=== PATIENT | female | born 1980 | race Caucasian/White ===

== ENCOUNTER 2018-09-29 09:29 | Inpatient (IN) | payer SELFPAY ==
--- NOTE | 2018-09-27 10:59 | HP.PCM_ITS ---
History and Physical Date of Admission: 09/27/18 Pre-Op History and Physical ? HPI: The patient is a 38 year old female presenting for pre-operative visit. She is scheduled for?, for?elective c/s on?09/29/18. ??Procedure discussed along with risks, benefits and complications. ?Other alternatives discussed for management. Consent form signed??Yes.? PAST?MEDICAL?HISTORY PAST MEDICAL HISTORY Diagnosis Date ? History of varicose veins 10/17/2012 ? 10/17/2012 Patient has right leg varicose veins. ?Discussed the importance of avoiding prolonged standing, sitting or crossing her legs. TKRN ? Other and unspecified disc disorder of unspecified region ? ? Intervertebral disc disorders--lumbar and mid-back per patient ? hemorrhage ? ? thyroid nodule ? ? ? PAST?SURGICAL?HISTORY PAST SURGICAL HISTORY Procedure Laterality Date ? BACK SURGERY HX ? 09/2015 ? herniated disc ? D&C ? ? ? 11 days ? ? CURRENT?MEDICATIONS Current Outpatient Medications Medication Sig Dispense Refill ? MULTIVITAMIN ORAL Take by mouth. ? ? ? No current facility-administered medications for this visit.? ? ALLERGIES:?Patient has no known allergies. ? PERSONAL HISTORY:? SOCIAL?HISTORY Social History ??Socioeconomic History ?Marital status: ?Spouse name: RACHEL ?Number of children: 1 ?Years of education: 8 ?Highest education level: Not on file ??Social Needs ?Financial resource strain: Not on file ?Food insecurity - worry: Not on file ?Food insecurity - inability: Not on file ?Transportation needs - medical: Not on file ?Transportation needs - non-medical: Not on file ??Occupational History ?Occupation: homemaker ??Tobacco Use ?Smoking status: Never Smoker ?Smokeless tobacco: Never Used ??Substance and Sexual Activity ?Alcohol use: No ?Drug use: No ?Sexual activity: Yes ?Partners: Male ??Other Topics ?Concerns: ?Not on file ??Social History Narrative ?Not on file ? FAMILY HISTORY:? FAMILY?HISTORY FAMILY HISTORY Problem Relation Age of Onset ? No Known Problems Mother ? ? No Known Problems Father ? ? No Known Problems Sister ? ? No Known Problems Sister ? ? No Known Problems Sister ? ? No Known Problems Brother ? ? No Known Problems Brother ? ? No Known Problems Brother ? ? No Known Problems Brother ? ? other (TOAN MELO) Maternal Grandmother ? ? No Known Problems Maternal Grandfather ? ? No Known Problems Paternal Grandmother ? ? Heart Paternal Grandfather ?[place] at 75 yo ? No Known Problems Daughter ? ? REVIEW OF SYMPTOMS: GENERAL: denies fevers or chills ENDOCRINOLOGY: has not been on steroids Cardiology : denies palpitations or chest pain Respiratory: denies SOB or cough Hematology: denies history of prolonged bleeding or easy bruising or VTE Allergy: Denies history of personal or family history of allergy to anesthesia ? ? PHYSICAL EXAMINATION: ? VITALS:?Last menstrual period 01/09/2018. ? GENERAL:??The patient is well nourished, well hydrated in no acute distress. ?, The patient is oriented to time, place, and person. NECK:?Supple. No lynphadenopathy, normal thyroid, no thyromegaly. LUNGS:?Clear to auscultation bilaterally. no wheezes, rhonchi or rales HEART:?Regular rate and rhythm, Normal heart sounds and No murmurs or gallops abd- soft, nontender, gravid, appropriate for gestational age ? IMPRESSION:?38-year-old 2 para 1 at 39-0/7 weeks on 09/29/2018, advanced maternal age, desires sterilization and elective section ? PLAN:???The risks/benefits/alternatives and personal involved for the planned?c- s and bilateral salpingectomy?were reviewed with the patient. Her questions were answered to her satisfaction and she desires to proceed. ?Consent was signed. ?I reviewed with her postop instructions and expectations. ? ? I have reviewed and updated past medical and surgical history, medications and allergies? This H&P was completed in my office on 09/26/18 Ashli Hernandez M.D.
[2018-09-29] VITALS (20 sets, daily range): BP systolic 94–107; BP diastolic 54–71; PULSE 60–74; RESP 16–18; TEMP 35.9–36.4; O2SAT 96–100; BMI 25.2
--- NOTE | 2018-09-29 | FALS_PTH ---
PATIENT: CHELSY NORIEGA LOC: [facility] U#:[id number] AGE/SX: 38/F ROOM: WP003 RE09/29/[address]: Dr. Ashli Hernandez MD : 1980 BED: 1 DIS: 10/02/2018 SPEC #: [id number] RECD: 09/29/18 14:31 STATUS: MARILEE KYLE #: [id number] HONG: 09/29/18 00:[address]: Ashli Hernandez DEPT: SURGICAL PATHOLOGY RECD BY: David Avitia ENTERED: 10/02/18 08:42 SP TYPE: FALL TUBES OTHR DR: Dr. Puhong Ramon MD Tissues: Fallopian tube Procedures: Surgery Specimen Level II HEADER OPERATION: Tubal ligation PRE-OP DIAGNOSIS: Desires sterilization TISSUE SUBMITTED: Fallopian tubes MICROSCOPIC DIAGNOSIS Right and left fallopian tubes, bilateral salpingectomies: Complete segments of fallopian tubes with benign paratubal cysts. AM:andre 10/03/18 MICROSCOPIC DESCRIPTION Slides are reviewed. GROSS DESCRIPTION Received is one container labeled with the patient's name and designated bilateral fallopian tubes, suture in left tube. The specimen consists of bilateral fallopian tubes including fimbrial ends. The left tube is identified by a suture. The right tube without suture measures 6.5 cm in length and 0.5 cm in diameter. The left tube with suture measures 6 cm in length and 0.5 in diameter. Sections do not reveal any mass lesion. Sections reveal unremarkable cut surfaces. Turning Sander Tender sections are submitted in two cassettes as follows: 1 - right tube, 2 - left tube. / ALEXI:andre 10/02/18 TC:5 CPT: 43716 x2
[2018-09-29 10:33] LABS: ROM Internal Control Test YES-OK TO RESULT pt. (Internal QC)
[2018-09-29 10:34] LABS: ROM Patient Test POSITIVE (Negative)
[2018-09-29] MEDS: Lactated Ringers 1,000 ML 999 ML IV (10:41)
[2018-09-29 10:58] LABS: Absolute Lymphocyte Count 1.34 X10^3/ul (0.83-4.51); Absolute Neutrophil Count 7.1 X10^3/uL (2.0-7.7); Basophil# 0.01 X10^3/uL; Basophil% 0.1 % (0-1); Eosinophil# 0.08 X10^3/uL; Eosinophils% 0.8 % (0-5); Hematocrit 35.1 % (37-47); Hemoglobin 11.4 g/dl (12.0-15.0); Lymphocyte # 1.34 X10^3/ul (4.0); Lymphocyte % 14.1 % (19-41); Mean Corp Hgb Conc 32.5 g/gl (32-36); Mean Corpuscular Hgb 28.7 pg (27.0-32.0); Mean Corpuscular Volume 88.4 fL (81-99); Mean Platelet Vol. 10.4 fl (6.2-12.0); Monocyte# 0.83 X10^3/uL; Monocyte% 8.8 % (0-10); Neutrophil # 7.11 X10^3/uL (2.7-7.7); Neutrophil % 75.1 % (47-70); Platelet Count 204 K/mm3 (150-450); RBC Distribution Width CV 13.9 % (11.6-14.6); Red Blood Count 3.97 M/mm3 (4.2-5.4); White Blood Count 9.5 K/mm3 (4.4-11.0)
[2018-09-29 11:00] LABS: POSITIVE COUNT NO; POSITIVE DIFFERENTIAL NO; POSITIVE MORPHOLOGY NO
[2018-09-29] MEDS: Cefazolin 2 GM in 0.9% Normal Saline 100 ML IV (11:43)
[2018-09-29] MEDS: Lactated Ringers 1,000 ML 150 ML IV (11:43)
[2018-09-29] MEDS: Sodium Citrate/Citric Acid 30 ML UDC PO (11:43)
[2018-09-29] MEDS: Oxytocin 30 units/NS 500 ml 30 UNITS/500 ML IV.SOLN 167 UNITS IV (12:26)
[2018-09-29] MEDS: Ondansetron 4 MG/2 ML Vial IV (12:40)
[2018-09-29] MEDS: Ketorolac 30 MG/ML Syringe IV ×2 (12:56→19:30)
[2018-09-29] MEDS: Lactated Ringers 1,000 ML 100 ML IV ×2 (12:56→18:45)
--- NOTE | 2018-09-29 13:06 | PCM.OPRPT ---
Report of Operation Date of Procedure: 09/29/18 community integration specialist: Elías Bishop Delivery Classification: Scheduled Final NEELAM: 10/06/18 Final NEELAM Source: US <20 weeks Gestational age: 39 Weeks and 0 Days Indications for : - - elective c-s, 39 weeks, advanced maternal age, sterilization request, SROM Description of Procedure: The patient was taken to the operating room. She was prepped and draped in the dorsal supine position with a leftward tilt. A Pfannenstiel skin incision was made approximately 2 cm above the symphysis pubis and carried through to underlying layer fascia with the scalpel. The fascia was incised incised in the midline and extended laterally with the Hou scissors. The fascia was dissected off the rectus muscles with blunt and sharp dissection. The rectus muscles were in the midline and the peritoneum was entered bluntly. The peritoneal incision was stretched and the bladder blade was placed. The uterine incision was made in a low transverse fashion with the scalpel and extended superiorly and inferiorly with blunt dissection. The amniotic membranes were ruptured bluntly and clear amniotic fluid returned. The 's head was brought to the incision in the flexed position and delivered without difficulty. The remainder of the was delivered with gentle traction and fundal pressure in the standard fashion. The mouth and nares were bulb suctioned. The cord was clamped and cut as the was stimulated. Cord clamping was delayed. The was handed off to the waiting nursing staff. The placenta was delivered with fundal massage and gentle traction in the standard fashion. The uterus was exteriorized and cleared of all clots and debris. The cervix was dilated with a ring forcep. The uterine incision was closed with #1 Vicryl in a running locked fashion. A second layer of the same suture was used in an imbricating fashion. The incision was examined and was found to be hemostatic. The uterus was placed back into the peritoneal cavity and hemostasis was again confirmed. The left fallopian tube was identified and followed out to fimbriated end. It was tented up with clamps. Clear portions of the antimesenteric portion of the tube were Bovie cauterized. This allowed Radha clamps to be placed along the antimesenteric portion of the tubes where the remaining vessels were. The tube was then bovied off. The corneal and was bovied. The corneal and and the vessels were bovied and then secured with plain gut free ties. The site was hemostatic. The tube was then removed in its entirety. The same procedure was performed on the contralateral side and excellent hemostasis was noted. The uterine incision was again examined and found to be hemostatic. The rectus muscles were examined and any bleeding was Bovie cauterized. The surgical teams outer gloves were then changed. The parietal peritoneum and rectus muscles were closed en bloc with an 0 Vicryl running suture. The rectus fascia was examined and any bleeding was Bovie cauterized and the rectus fascia was closed with 1 Vicryl suture in a running standard fashion. The subcutaneous tissue was examining and any bleeding was Bovie cauterized. The subcutaneous tissue was reapproximated with 3-0 Vicryl suture. The skin was closed in a subcuticular fashion by me. I performed the remainder of the procedure with assistance. All sponge, lap, and needle counts were correct. The patient was taken to her room for recovery in a stable condition. Amniotic Membrane Rupture Type: Spontaneous Amniotic Fluid Description: Clear Placenta Disposition: [facility] Specimen(s) sent to pathology: bilateral tubes Drain: Garibay to straight drain Fluids Replaced: 1700 Cord Entanglement: None Cord Vessel Description: 3 Vessels Esitmated Blood Loss (ml): 800 Infant Gender: Male (1 minute): 8 (5 minute): 9 Delayed cord clamping: Yes Pre-op Antibiotic Given: Ancef 2 grams IV x1 Complications: None - Admit VTE Documentation VTE Present on Admission: No VTE Mechan Device Prophylaxis: SCD's VTE Pharm Prophylaxis ordered?: No Reason prophylaxis not ordered:: Procedure Not Indicated
[2018-09-29 14:52] LABS: Pathology Specimen OB SEE PATHOLOGY REPORT
[2018-09-29] MEDS: Acetaminophen 500 MG Tablet 1000 MG PO (15:13)
[2018-09-29] MEDS: DiphenhydrAMINE 25 MG Capsule PO (18:44)
[2018-09-29] MEDS: Senna/Docusate Sodium 1 Tablet PO (21:28)
[2018-09-30] VITALS (13 sets, daily range): BP systolic 94–136; BP diastolic 45–68; PULSE 60–92; RESP 16–30; TEMP 36.2–36.9; O2SAT 98–99
[2018-09-30] MEDS: Ketorolac 30 MG/ML Syringe IV ×2 (00:42→06:31)
[2018-09-30] MEDS: Lactated Ringers 1,000 ML 100 ML IV (04:51)
[2018-09-30 05:29] LABS: Hematocrit 32.9 % (37-47); Hemoglobin 10.6 g/dl (12.0-15.0); Mean Corp Hgb Conc 32.2 g/gl (32-36); Mean Corpuscular Hgb 29.2 pg (27.0-32.0); Mean Corpuscular Volume 90.6 fL (81-99); Mean Platelet Vol. 10.1 fl (6.2-12.0); Platelet Count 185 K/mm3 (150-450); RBC Distribution Width CV 14.1 % (11.6-14.6); RBC Distribution Width SD 46.7 fl (35.1-43.9); Red Blood Count 3.63 M/mm3 (4.2-5.4)
[2018-09-30 05:30] LABS: Scan Indicated on CBC? Y/N NO
--- NOTE | 2018-09-30 06:04 | PN.OBGYN_ITS ---
Subjective: Pain controlled. Average lochia. No nausea. Tolerating regular diet. Has been up to chair. - Physical Exam General: Alert, Cooperative, No apparent distress Abdomen: Soft, Distended - Moderately, softly, Tender - Appropriately, - - Fundus firm below the umbilicus Extremities: Edema - Trace Skin: Incision - Bandages clean dry and intact Vital Signs Temp Pulse Resp BP Pulse Ox 98.3 F 64 16 95/61 99 09/30/18 00:20 09/30/18 00:20 09/30/18 00:20 09/30/18 00:20 09/30/18 00:29 Oxygen Delivery Method Room Air Weight: 75.296 kg Body Mass Index (BMI) 25.2 Intake and Output for Last 24 Hours 09/28/18 09/29/18 09/30/18 23:59 23:59 23:59 Intake Total 4800 / 4800 1632 / 1632 Output Total 5150 / 5150 775 / 775 Balance -350 / -350 857 / 857 Laboratory Tests Past 24 Hrs 09/29/18 09/29/18 09/29/18 10:20 10:25 10:25 WBC 9.5 RBC 3.97 L Hgb 11.4 L Hct 35.1 L MCV 88.4 MCH 28.7 MCHC 32.5 RDW 13.9 RDW Differential 44.0 H Plt Count 204 MPV 10.4 Immature Gran % (Auto) 1.100 H Neut % (Auto) 75.1 H Lymph % (Auto) 14.1 L Divide % (Auto) 8.8 Eos % (Auto) 0.8 Baso % (Auto) 0.1 Absolute Neuts (auto) 7.1 Absolute Lymphs (auto) 1.34 Total Counted Not Reportable Vag Amniotic Fld Detect POSITIVE H Blood Type O POSITIVE Antibody Screen NEGATIVE 09/30/18 05:00 WBC 12.0 H RBC 3.63 L Hgb 10.6 L Hct 32.9 L MCV 90.6 MCH 29.2 MCHC 32.2 RDW 14.1 RDW Differential 46.7 H Plt Count 185 MPV 10.1 Immature Gran % (Auto) Neut % (Auto) Lymph % (Auto) Divide % (Auto) Eos % (Auto) Baso % (Auto) Absolute Neuts (auto) Absolute Lymphs (auto) Total Counted Vag Amniotic Fld Detect Blood Type Antibody Screen Medical Necessity - Tobacco Use Smoking Status: Never smoker Assessment/Plan Postoperative day #1 status post primary with bilateral salpingectomy for sterilization. Patient is doing well. Routine care.
[2018-09-30] MEDS: Senna/Docusate Sodium 1 Tablet PO (11:47)
[2018-09-30] MEDS: Naproxen 250 MG Tablet PO (11:54)
[2018-09-30] MEDS: oxyCODONE 5 MG Tablet PO ×3 (12:51→20:56)
[2018-09-30] MEDS: Morphine 4 MG/ML Syringe 8 MG IM (13:45)
--- NOTE | 2018-09-30 13:50 | NURSING ---
Pt and pt called this RN to room. This RN went to room to find pt hyperventilating in bed and crying stating she was in a lot of pain. Vitals obtained and WNL, assessment done and distended abdomen noted otherwise assessment unchanged. This RN called Dr Hernandez and informed of pt status and orders obatined for STAT labs and IM pain medicine. Once pt instructed to slow and control breathing and pain meds given pt calm and stating pain is relieved. This RN placed pt on left side to help with gas pains felt by pt. Dr Hernandez called and updated with lab results and pt improvement.
[2018-09-30 14:00] LABS: Hematocrit 35.6 % (37-47); Hemoglobin 11.7 g/dl (12.0-15.0); Mean Corp Hgb Conc 32.9 g/gl (32-36); Mean Corpuscular Hgb 29.5 pg (27.0-32.0); Mean Corpuscular Volume 89.7 fL (81-99); Mean Platelet Vol. 10.2 fl (6.2-12.0); Platelet Count 223 K/mm3 (150-450); RBC Distribution Width CV 14.2 % (11.6-14.6); RBC Distribution Width SD 45.6 fl (35.1-43.9); Red Blood Count 3.97 M/mm3 (4.2-5.4); Scan Indicated on CBC? Y/N NO; White Blood Count 14.6 K/mm3 (4.4-11.0)
[2018-09-30 14:06] LABS: International Normalized Ratio 0.9; Prothrombin Time (Protime)PT. 11.6 SECONDS (11.7-14.9)
[2018-09-30] MEDS: 0.9% Saline Lock 10 ML Syringe IV (16:22)
--- NOTE | 2018-09-30 20:55 | CM.ED ---
Social Work Brief Assessment - Labor and Delivery Unit Refer documentation below for further details. Date of Referral/Notification: 09/29/18 Time of Referral: 17:13 Reason for Referral: NURSING CONCERNS Date of Intervention: 09/30/18 Time of Intervention: 20:35 Informant: Medical record and mother of baby (MOB) Assessment: MOB IS A 38 Y/O FEMALE SEEN AFTER ON 09/29/18. UPDATED BY NURSING CONCERNS REGARDING MOB BEHAVIOR: FLAT AFFECT, LIMITED EYE CONTACT, NOT MUCH INVOLVEMENT WITH BABY BOY, GEORGE. THIS WORKER INTRODUCED ROLE AND REASON FOR REFERRAL TO MOB AND FOB, RACHEL IN ROOM. MOB LAYING IN BED. FOB ASSISTING IN ADJUSTING PILLOWS FOR MOB. FOB VERY TENTATIVE TO MOB AND BABY DURING THIS WORKER'S TIME IN ROOM. MOB CALM AND COOPERATIVE THROUGHOUT ASSESSMENT. ,MOB MAINTAINED GOOD EYE CONTACT AND SMILED THROUGHOUT ASSESSMENT. MOB REPORTS HAD A ROUGH DAY DUE TO PAIN, BUT STATES NURSING STAFF HAS BEEN ON TOP OF IT SINCE THIS AFTERNOON. MOB DENIES ANY HX OF DEPRESSION OR ANXIETY, HOWEVER, REPORTS MAY HAVE HAD POST AFTER FIRST CHILD, KASH ZAMORANO NOW AGE 5. ROGER DISCUSSED PPD AND PROVIDED MOB WITH HANDOUT. FOB ADMITS TO OWN HX OF DEPRESSION AND STATES WAS PRESCRIBED ZOLOFT. MOB AND FOB REPORT HAVE ALL NEEDS MET FOR BABY. THEY BOTH DENY ANY ISSUES OR CONCERNS. UPDATED NURSING ON THIS WORKERS ASSESSMENT. Plan: HOME No further needs requested or indicated. -Polina Ambrosio, FEED PROJECT ENGINEER, KNOT CUTTER
[2018-10-01] MEDS: Naproxen 250 MG Tablet PO ×3 (00:47→17:30)
[2018-10-01 02:55] VITALS: BP 96/55; PULSE 65; RESP 16; TEMP 36.3
[2018-10-01] MEDS: oxyCODONE 5 MG Tablet PO (04:57)
[2018-10-01 08:22] VITALS: BP 94/60; PULSE 66; RESP 16; TEMP 36.5; O2SAT 99
--- NOTE | 2018-10-01 09:42 | PCM.PN.OB ---
Subjective: Patient states pain is well controlled today. She has had some loose stools. She is tolerating regular diet and ambulating. Yesterday her pain got out of control and she had an episode. Nursing called me and the patient was moaning in the background. She was complaining of diffuse abdominal pain but she also complained of pain when they touched her anywhere including on the arms and legs. Patient denies that she has had panic attacks in the past. She denies any previous episodes similar to this. She denies anxiety about going home and does have arranged home so she does not feel overwhelmed. - Physical Exam General: Alert, Cooperative, No apparent distress Abdomen: Soft, Distended - Mildly, softly, Tender - Appropriately Extremities: No edema Skin: Incision - Bandage is clean dry and intact Vital Signs Temp Pulse Resp BP Pulse Ox 97.7 F L 66 16 94/60 99 10/01/18 08:22 10/01/18 08:22 10/01/18 08:22 10/01/18 08:22 10/01/18 08:22 Oxygen Delivery Method Room Air Weight: 75.296 kg Body Mass Index (BMI) 25.2 Intake and Output for Last 24 Hours 09/29/18 09/30/18 10/01/18 23:59 23:59 23:59 Intake Total 4800 / 4800 1632 / 1632 Output Total 5150 / 5150 1125 / 1125 Balance -350 / -350 507 / 507 Laboratory Tests Past 24 Hrs 09/30/18 09/30/18 13:45 13:45 WBC 14.6 H RBC 3.97 L Hgb 11.7 L Hct 35.6 L MCV 89.7 MCH 29.5 MCHC 32.9 RDW 14.2 RDW Differential 45.6 H Plt Count 223 MPV 10.2 PT 11.6 L INR 0.9 Medical Necessity - Tobacco Use Smoking Status: Never smoker Assessment/Plan Postoperative day #2 status post section Discussed with her loose stools are likely a side effect of the Hemabate, stool softeners were stopped. Encouraged patient to ambulate. Patient had episode yesterday which was likely a panic attack. I think the patient's anxiety spiked when her pain increased and did not get relieved quickly. Patient eventually was able to get her pain under control with IM morphine and they were able to restart an IV and check labs. There is no evidence of postoperative hemorrhage as her hemoglobin actually increased and her platelets and coags were normal. Patient denies history of this in the past. Does have help at home she is discharged. Patient and I agree that she should stay until tomorrow to ensure that her pain is well controlled today and she has no further anxiety attacks. Infant is doing well.
[2018-10-01] MEDS: Acetaminophen 500 MG Tablet 1000 MG PO ×2 (12:30→20:43)
[2018-10-01 14:10] VITALS: BP 103/59; PULSE 68; RESP 16; TEMP 36.7; O2SAT 98
[2018-10-01 20:00] VITALS: BP 114/68; PULSE 69; RESP 18; TEMP 36.1
[2018-10-02] MEDS: oxyCODONE 5 MG Tablet PO ×2 (00:27→09:28)
[2018-10-02 02:05] VITALS: BP 118/64; PULSE 64; RESP 18; TEMP 36.6
[2018-10-02] MEDS: 0.9% Saline Lock 10 ML Syringe IV (06:10)
[2018-10-02] MEDS: Naproxen 250 MG Tablet PO (06:14)
[2018-10-02 08:15] VITALS: BP 122/56; PULSE 67; RESP 16; TEMP 36.6
--- NOTE | 2018-10-02 08:27 | PN.OBGYN_ITS ---
Subjective: Doing well per patient and nursing staff. Ambulating and taking PO without difficulty. Voiding and passing flatus. No further soft stools. Pumping b reastmilk, baby not eating at the breast. Denies any increased vaginal bleeding/clots, SOB, chest pain, or increased pain. Pain controlled with oxycodone and ibuprofen. Planning D/C home today. - Physical Exam General: Alert, Oriented x3, Cooperative HEENT: Atraumatic, Normocephalic Neck: Trachea Midline Lungs: Clear to auscultation, No rhonchi, No wheeze Cardiovascular: Regular rate, Regular Rhythm, No murmurs Abdomen: Bowel Sounds Present, Soft, Gravid, - - appropriately tender Extremities: No edema, - - Edilberto's negative Psych/Mental Status: Normal Affect, Appropriate Vital Signs Temp Pulse Resp BP Pulse Ox 97.9 F 67 16 122/56 H 98 10/02/18 08:15 10/02/18 08:15 10/02/18 08:15 10/02/18 08:15 10/01/18 14:10 Oxygen Delivery Method Room Air Weight: 166 lb Body Mass Index (BMI) 25.2 Intake and Output for Last 24 Hours 09/30/18 10/01/18 10/02/18 23:59 23:59 23:59 Intake Total 1632 / 1632 Output Total 1125 / 1125 Balance 507 / 507 Medical Necessity - Tobacco Use Smoking Status: Never smoker Assessment/Plan A:POD #3 Repeat Section with bilateral salpingectomy problem P: 1) Planning D/C home today. 2) Percocet prescription 3) Follow up in one week and 6 weeks 4) Discharge instructions given. 5) referral placed
--- NOTE | 2018-10-02 08:35 | DCINST_ITS ---
Discharge Diet: No Restrictions Discharge Activity: May not drive while taking narcotic pain medications., May Shower May resume sexual activity in: 4-6 weeks Lifting Restrictions: 20 pounds Additional Activity Instructions:: Nothing in the vagina for 4-6 weeks. You may return to work/school in 6 weeks. Call your doctor if your incision/area has: Continuous Slow Oozing, Sudden Increased Bleeding, Increased Pain/ Swelling, Increased Redness, Foul Smelling Discharge Call your doctor if you observe: Fever of 101 or Higher, Inability to urinate, Inability to have a bowel movement, Using more than one pad per hour, Shortness of breath, Chest pain, Calf discomfort, Uncontrolled pain Suture Line Care: Avoid Pulling/Pushing, Avoid Pinching/Bending Cleanse incision/area with: Keep Dressing Clean & Dry - Remove 7 days Instructions: () Additional Instructions: If you experience any of the following, contact your healthcare provider. * Bleeding that soaks a pad every hour for 2 hours * Fever 100.4 or higher * Unrelieved incision or abdominal pain * Swelling, redness, discharge or bleeding from your incision or episiotomy site * Your incision begins to separate * Problems urinating (including inability to urinate or burning while urinating). * Visual changes * Severe headache * Flu-like symptoms * Pain or redness in one of both of your breasts * Pain, warmth, tenderness or swelling in your legs, especially the calf area * Frequent nausea and vomiting * Symptoms of depression or anxiety If you experience any of the following, call 911 or go to the nearest Emergency Room. * Chest pain * Problems breathing * Seizure activity * Partial or complete paralysis of a body part, slurred speech, weakness or drooping of the face, or a sudden inability to walk or hold your balance Allergies/Adverse Reactions: Allergies No Known Allergies Allergy (Verified 03/22/17 17:57) Medications to take at Discharge Vits [Prenatabs FA] 1 tab PO DAILY 09/29/18 Follow-Up: Call to make an appointment with your doctor for an incision check in 1-2 weeks. You will also need a 6 week post- follow up appointment. Test results from this visit will be discussed in further detail at your follow- up appointment, if applicable. Please Follow Up With: Ashli Hernandez MD Primary Care Physician: Phuong Ramon MD [Primary Care Provider] -
--- NOTE | 2018-10-02 08:39 | DS.PCM_ITS ---
Discharge Date and Diagnosis Date of Admission: 09/29/18 Date of Discharge: 10/02/18 Hospital Course and Treatment Summary of Care Provided: The patient is a 38 year old F for elective c-s at 39 weeks, advanced maternal age, sterilization request, SROM on 09/29/18. Elective Section performed without complications. On POD #2 patient had panic attack secondary to unrelieved pain. Pain controlled and doing well. with some dif ficulty, pumping breastmilk. Discharge home on POD #3. - Physical Exam Vital Signs Temp Pulse Resp BP Pulse Ox 97.9 F 67 16 122/56 H 98 /15/ 08:15 10/02/18 08:15 10/02/18 08:15 10/02/18 08:15 10/01/18 14:10 Oxygen Delivery Method Room Air Weight: 166 lb Body Mass Index (BMI) 25.2 Intake and Output for Last 24 Hours 07/13/19 07/14/19 // 23:59 23:59 23:59 Intake Total 1632 / 1632 Output Total 1125 / 1125 Balance 507 / 507 Discharge Diet: No Restrictions Discharge Activity: May not drive while taking narcotic pain medications., May Shower May resume sexual activity in: 4-6 weeks Additional Activity Instructions:: Nothing in the vagina for 4-6 weeks. You may return to work/school in 6 weeks. Call your doctor if your incision/area has: Continuous Slow Oozing, Sudden Increased Bleeding, Increased Pain/ Swelling, Increased Redness, Foul Smelling Discharge Call your doctor if you observe: Fever of 101 or Higher, Inability to urinate, Inability to have a bowel movement, Using more than one pad per hour, Shortness of breath, Chest pain, Calf discomfort, Uncontrolled pain Suture Line Care: Avoid Pulling/Pushing, Avoid Pinching/Bending Cleanse incision/area with: Keep Dressing Clean & Dry - Remove 7 days Home Medications: Medications to take at Discharge Vits [Prenatabs FA] 1 tab PO DAILY 09/29/18 Primary Care Physician: Phuong Ramon MD [Primary Care Provider] - Please Follow Up With: Ashli Hernandez MD Patient Instructions: () Medical Necessity - Tobacco Use Smoking Status: Never smoker Tobacco Use: Non-smoker Meaningful Use Info Meaningful Use Diagnoses (Choose all that apply): None applicable
== END 2018-10-02 10:35 | disposition home or self-care (01) | DRG 785 ==
PROVIDERS: Admitting Provider Obstetrics & Gynecology; Family Provider Internal Medicine; PCP Internal Medicine; Referring Provider Obstetrics & Gynecology; Visit Provider Obstetrics & Gynecology
PROC: 10D00Z1 Extraction of Products of Conception, Low, Open Approach (ICD-10-PCS; CPT 59514; principal; 2018-09-29 11:45)
DX: O82 Encounter for cesarean delivery without indication (principal); O99.345 Other mental disorders complicating the puerperium; Z30.2 Encounter for sterilization; Z3A.39 39 weeks gestation of pregnancy; Z37.0 Single live birth; F41.0 Panic disorder [episodic paroxysmal anxiety]
CPT/HCPCS: 59050; 84112; 85025; 85027; 85610; 86850; 86900; 88302; 94762; 99218; J7120; A4216; G0378; J2405; J3490

== ENCOUNTER 2020-12-25 08:43 | Emergency (ER) | payer OTHER, SELFPAY ==
[2020-12-25 08:44] VITALS: BP 117/75; PULSE 86; RESP 16; TEMP 36.5; O2SAT 100; BMI 20.5
--- NOTE | 2020-12-25 09:12 | EDS_ITS ---
HPI History of Present Illness Chief Complaint: General Illness Detail of Chief Complaint: Back pain, right upper quadrant pain and chest pain Informant: patient and spouse/S.O. Onset/Context/Timing Onset: Weeks Context: Sudden Onset Timing: Intermittent Quality: Pain Location: Previously noted Current Severity: Gone (Has not had pain since Tuesday evening. Was positional on Tuesday) Maximum Severity: Severe Worsened by: Movement Relieved by: Nothing Associated Symptoms Associated Symptoms: Per HPI Narrative Narrative: Patient is a 40-year-old female who was last normal menstrual period started today. She presents because of right back pain that radiated to the right upper quadrant and into her chest for the past several weeks. The pain w as worse on Tuesday and lasted several hours. She had hotdog and sawyer for dinner. There is no family history of cholelithiasis. She denies history of renal lithiasis and denies family history. She denies dysuria, frequency, urgency or hematuria. On Tuesday she had discomfort with breathing and had to lean forward. She denies history of VTE. She denies leg pain, swelling discoloration. She has no risk factors for VTE. Presently patient has no pain. She has not had pain since Tuesday. She has no other symptoms. Prior similar symptoms: No Recent Illness/Hospitalization: No PFSH PFSH Home Medications NK 12/25/20 [History Last Taken Unknown] Allergy/AdvReac Type Severity Reaction Status Date / Time No Known Allergies Allergy Verified 12/25/20 09:09 Social History (Updated 12/25/20 @ 09:[address] Grady Delarosa MD) household members: spouse and children housing: house Smoking Status: Never smoker substance use type: does not use ROS ROS ED Constitutional Constitutional ED: Denies chills, fever(s), subjective, sweats or weight loss Eyes Eyes: Denies blurry vision or change in vision ENT ENT ED: Denies ear pain, rhinorrhea or sore throat Cardiovascular Cardiovascular: Reports chest pain; Denies orthopnea, palpitations, paroxysmal nocturnal dyspnea or racing heartbeat Respiratory/Chest Respiratory/Chest: Reports dyspnea; Denies cough, dyspnea on exertion, orthopnea, paroxysmal nocturnal dyspnea or sputum Gastrointestinal Gastrointestinal: Denies abdominal pain, nausea or vomiting Genitourinary Genitourinary ED: Denies dysuria, hematuria or urinary frequency Musculoskeletal Musculoskeletal: Reports back pain; Denies arthralgias, myalgias or neck pain Integumentary Denies rash Neurologic Neurologic: Denies headache(s) or weakness Endocrine Endocrinology: Denies polydipsia, polyphagia or polyuria Hematologic/Lymphatic Hematologic/Lymphatic: Denies anemia, easy bleeding or easy bruising EXAM Physical Exam Const Vital Signs: 12/25/20 08:44 12/25/20 09:07 Temperature 97.7 F L Temperature Source Temporal Pulse Rate 86 Respiratory Rate 16 Respiratory Effort Normal Non-Labored Respiratory Pattern Normal Blood Pressure 117/75 Blood Pressure Mean 89 Pulse Ox 100 Oxygen Delivery Method Room Air Positive well nourished and well developed General Appearance ED: well developed and NAD HEENT Reports TM's clear and moist mucous membranes HEENT Narrative: Head is atraumatic normocephalic. Nares patent. Tympanic Membrane ED: Yes TM's clear Eyes PERRL and EOMs intact bilaterally General Eye ED: Negative for pale conjunctiva or scleral icterus Neck no lymphadenopathy, supple and no JVD Resp normal respiratory effort and clear to auscultation bilaterally Effort and Inspection: Negative for pain with movement Cardio regular rate, regular rhythm, S1 normal heart sound, S2 normal heart sound and no murmurs GI normal to inspection, nondistended, normoactive bowel sounds, non-tender and non-distended Palpation: soft Back/Spine no CVA tenderness Thoracic Spine / Upper Back: Negative for paraspinal muscle tenderness Extremity normal to inspection General Extremety ED: Negative for edema or tenderness General Extremity: Negative for edema Neuro oriented x3 and CN's II-XII intact bilaterally Sensorium / Orientation: alert Motor Exam: strength 5/5 throughout Psych mental status grossly normal Skin no rashes or lesions noted and no wounds MDM MDM MDM Narrative Medical decision making narrative: D-dimer was not obtained since patient is PERC negative. Presently patient has no pain. Her exam is unremarkable. This may represent urinary tract pathology versus biliary versus pulmonary. Will obtain chest x-ray and appropriate blood work. Lab Data Attestation: I reviewed the patient's lab results. Labs: Laboratory Results - last 24 hr 12/25/20 12/25/20 09:25 09:25 WBC 8.8 RBC 4.83 Hgb 14.6 Hct 44.2 MCV 91.5 MCH 30.2 MCHC 33.0 RDW Std Deviation 42.8 RDW Coeff of [place] 12.8 Plt Count 263 MPV 9.6 Immature Gran % (Auto) 0.200 Neut % (Auto) 69.3 Lymph % (Auto) 15.0 L [place] % (Auto) 6.3 Eos % (Auto) 8.4 H Baso % (Auto) 0.8 Absolute Neuts (auto) 6.1 Absolute Lymphs (auto) 1.32 Nucleated RBC % 0 Sodium 139 Potassium 3.9 Chloride 105 Carbon Dioxide 28.0 Anion Gap 6 BUN 15 Creatinine 0.78 Estim Creat Clear Calc 91.75 Est GFR (MDRD) Af Amer 105 Est GFR (MDRD) Non-Af 87 BUN/Creatinine Ratio 19.3 Glucose 108 H Calcium 9.5 Total Bilirubin 0.50 AST 22 ALT 24 Alkaline Phosphatase 58 Total Protein 7.8 Albumin 4.0 Globulin 3.8 Albumin/Globulin Ratio 1.1 Lipase 92 Radiography Chest X-Ray - ED: 2 View, Read by ED Physician (Interpreted by me at [id number].), Normal, Heart, Lungs, Mediastinum, Bony Structures and No Acute Disease Discharge Plan Triage Chief Complaint: General Illness ED Provider: Grady Delarosa Dx/Rx/DC Orders Clinical Impression: Acute right flank pain, Chest pain Instructions: ED Chest Pain, Noncardiac, ED Flank Pain, Uncertain Cause Prescriptions: No Action NK RF: 0 Primary Care Provider: Phuong Ramon Referrals: Phuong Ramon MD [Primary Care Provider] - 3-5 Days Disposition Disposition: Home, Self Care
[2020-12-25 09:30] LABS: Absolute Lymphocyte Count 1.32 X10^3/uL (0.83-4.51); Absolute Neutrophil Count 6.1 X10^3/uL (2.0-7.7); Basophil# 0.07 X10^3/uL; Basophil% 0.8 % (0-1); Eosinophil# 0.74 X10^3/uL; Eosinophils% 8.4 % (0-5); Hematocrit 44.2 % (37-47); Hemoglobin 14.6 g/dL (12.0-15.0); Lymphocyte # 1.32 X10^3/ul (0.83-4.51); Mean Corpuscular Hgb 30.2 pg (27.0-32.0); Mean Corpuscular Volume 91.5 fL (81-99); Mean Platelet Vol. 9.6 fl (6.2-12.0); Monocyte# 0.55 X10^3/uL; Monocyte% 6.3 % (0-10); NRBC Flagged by Analyzer 0 % (0-5); Neutrophil # 6.09 X10^3/uL (2.7-7.7); Neutrophil % 69.3 % (47-70); Platelet Count 263 K/mm3 (150-450); RBC Distribution Width CV 12.8 % (11.6-14.6); RBC Distribution Width SD 42.8 fl (35.1-43.9); Red Blood Count 4.83 M/mm3 (4.2-5.4); White Blood Count 8.8 K/mm3 (4.4-11.0)
--- NOTE | 2020-12-25 09:41 | RAD_ITS ---
STUDY: X-RAY CHEST REASON FOR EXAM: Female, 40 years old. cp TECHNIQUE: PA and lateral views of the chest. COMPARISON: None. FINDINGS: The lungs are clear and expanded. There is no demonstrated pleural abnormality. Normal size heart. Normal mediastinum and jose david. Normal visualized pulmonary arteries. Normal visualized aortic arch and descending thoracic aorta. Normal visualized thoracic spine. Normal visualized ribs, clavicles, and shoulders. There is no demonstrated abnormality of the visualized soft tissue structures of the upper abdomen. RAD/Chest PA and Lateral IMPRESSION: Normal x-ray examination of the chest. Electronically Signed: Celestine Dubon MD at 9:57 EDT Tel , Service support ,
[2020-12-25 09:49] LABS: ALB/GLOB Ratio 1.1 RATIO (0.9-2.4); AST(SGOT) 22 U/L (15-37); Alanine Aminotransfer ALT/SGPT 24 U/L (13-56); Alkaline Phosphatase 58 U/L (45-117); Anion Gap 6 (5-15); BUN 15 mg/dL (7-18); BUN/Creat Ratio 19.3 RATIO (10-20); Calcium,Total 9.5 mg/dL (8.5-10.1); Chloride 105 mmol/L (98-107); Creatinine, Serum 0.78 mg/dL (0.55-1.02); EST Glomerular Filtration Rate 87 mL/min (>60); Est Glom Filt Rate - Afr Amer 105 mL/min (>60); Estimated Creatinine Clearance 91.75 ml/min; Globulin 3.8 g/dL (2.2-4.2); Glucose 108 mg/dL (74-106); Lipase 92 U/L (73-393); Potassium 3.9 mmol/L (3.5-5.1); Protein, Total 7.8 g/dL (6.4-8.2); Sodium Level 139 mmol/L (136-145)
[2020-12-25 10:13] VITALS: BP 111/71; PULSE 70; RESP 16; O2SAT 99
--- NOTE | 2020-12-25 10:14 | ED.RN ---
REVIEWED D/C INSTRUCTIONS, FOLLOW UP CARE, AND S/S THAT WOULD WARRANT A RETURN TO THE ED WITH PT. PT VERBALIZED AN UNDERSTANDING AND DENIES FURTHER QUESTIONS FOR THIS RN. PT SKIN P/W/D, RESP EVEN AND UNLABORED, PT A&O X 3, NO DISTRESS NOTED. PT AMBULATED OUT OF ED, GAIT STEADY.
== END 2020-12-25 10:15 | disposition home or self-care (01) ==
PROVIDERS: Emergency Provider Emergency Medicine; PCP Internal Medicine
DX: R10.9 Unspecified abdominal pain (principal); R07.89 Other chest pain
CPT/HCPCS: 71046; 80053; 83690; 85025; 99284

== ENCOUNTER → 2024-01-31 | Outpatient (CLI) | payer SELFPAY, OTHER | END | disposition home or self-care (01) | PROVIDERS: PCP Internal Medicine; Referring Provider Nurse Practitioner Women's Health; Visit Provider Nurse Practitioner Women's Health | DX: Z12.31 Encounter for screening mammogram for malignant neoplasm of breast (principal) | CPT/HCPCS: 77063; 77067 ==